=== PATIENT | male | born 1965 | race Caucasian/White ===

== ENCOUNTER 2019-04-14 11:10 | Emergency (ER) | payer MEDICAID ==
[~2019-04-14] VITALS: Ht 175.3 cm; Wt 79.5 kg
[2019-04-14 11:16] VITALS: BP 111/56
[2019-04-14] MEDS ORDERED: diph,pertuss (acell), tet (DTaP-PEDs)/PF 0.5ml syringe IMVAC ONE (11:50)
[2019-04-14] MEDS ORDERED: TETanus/Pertussis (Acell)/Diphther VAC/PF (Tdap-Adult) 0.5ml syringe IMVAC ONE (11:55)
[2019-04-14] MEDS ORDERED: acetaminophen 325mg tablet PO ONE (12:30)
[2019-04-14] MEDS ORDERED: ibuprofen tablet 400 MG TABLET PO ONE (12:30)
[2019-04-14] MEDS ORDERED: CEPH250T PO (12:41)
== END 2019-04-14 13:32 | disposition home or self-care (01) ==
LOC: ER 11:10
DX: S61.531A Puncture wound without foreign body of right wrist, initial encounter (principal); L03.113 Cellulitis of right upper limb; F17.200 Nicotine dependence, unspecified, uncomplicated; Z88.2 Allergy status to sulfonamides; Z79.2 Long term (current) use of antibiotics; W45.0XXA Nail entering through skin, initial encounter; Y93.89 Activity, other specified; Y92.89 Other specified places as the place of occurrence of the external cause; Y99.8 Other external cause status
CPT/HCPCS: 73100; 90471; 99284

== ENCOUNTER 2019-09-17 03:58 | Emergency (ER) | payer MEDICAID ==
[~2019-09-17] VITALS: Ht 177.8 cm; Wt 72.0 kg
[2019-09-17 04:07] VITALS: BP 145/90
== END 2019-09-17 04:24 ==
LOC: ER 03:58
DX: I10 Essential (primary) hypertension (principal); Z88.2 Allergy status to sulfonamides
CPT/HCPCS: 99283

== ENCOUNTER 2020-05-23 05:39 | Emergency (ER) | payer MEDICAID ==
[~2020-05-23] VITALS: Ht 175.3 cm; Wt 72.7 kg
[2020-05-23 05:44] VITALS: BP 181/117
--- NOTE | 2020-05-23 06:16 | NUR ---
LACERATION SET UP AT BEDSIDE / UROJET AND NS
[2020-05-23] MEDS ORDERED: CEPH-572 PO (06:37)
[2020-05-23] MEDS ORDERED: cephalexin 250mg capsule PO ONE (06:40)
== END 2020-05-23 07:06 | disposition home or self-care (01) ==
LOC: ER 05:39
DX: S41.111A Laceration without foreign body of right upper arm, initial encounter (principal); L03.116 Cellulitis of left lower limb; Z88.2 Allergy status to sulfonamides; Z79.899 Other long term (current) drug therapy; W26.8XXA Contact with other sharp object(s), not elsewhere classified, initial encounter; Y93.89 Activity, other specified; Y92.89 Other specified places as the place of occurrence of the external cause; Y99.8 Other external cause status
CPT/HCPCS: 99283

== ENCOUNTER 2021-02-01 17:31 | Emergency (ER) | payer MEDICAID ==
[~2021-02-01] VITALS: Ht 180.3 cm; Wt 78.0 kg
[2021-02-01 17:41] VITALS: BP 182/113
--- NOTE | 2021-02-01 17:52 | NUR ---
[facility] NOTIFIED. CASE #[id number]
== END 2021-02-01 20:38 | disposition left against medical advice (07) ==
LOC: ER 17:31
DX: R51.9 Headache, unspecified (principal); Z53.21 Procedure and treatment not carried out due to patient leaving prior to being seen by health care provider

== ENCOUNTER 2021-07-09 05:16 | Emergency (ER) | payer MEDICAID ==
[~2021-07-09] VITALS: Ht 175.3 cm; Wt 72.7 kg
[2021-07-09 05:30] VITALS: BP 196/132
[2021-07-09] MEDS ORDERED: ondansetron/PF 4mg/2ml inj IV ONE (06:10)
[2021-07-09] MEDS ORDERED: ketorolac trometh. 30mg/ml inj. IV ONE (06:10)
[2021-07-09] MEDS ORDERED: normal saline 1000ML IV soln IVB ONE (06:10)
[2021-07-09] MEDS ORDERED: ketorolac tromethamine 15mg/ml inj. IV ONE (06:15)
[2021-07-09] MEDS ORDERED: acetaminophen 325mg tablet PO ONE (06:20)
[2021-07-09] MEDS ORDERED: proCHLORperazine 10 MG/2 ml inj IV ONE (06:20)
[2021-07-09 09:29] LABS: BASOPHILS % (AUTO) 0.1 % (0-1); EOSINOPHILS % (AUTO) 0.1 % (0-6); HEMATOCRIT 46.3 % (42.0-52.0); HEMOGLOBIN 15.9 g/dl (14.0-17.9); LYMPHOCYTES # (AUTO) 0.8 X10'3 (1.1-4.8); LYMPHOCYTES % (AUTO) 9.2 % (21-51); MEAN CORPUSCULAR HEMOGLOBIN 28.6 PG (27.0-31.0); MEAN CORPUSCULAR HGB CONC 34.3 g/dL (33.0-36.5); MEAN CORPUSCULAR VOLUME 83.4 FL (78-98); MEAN PLATELET VOLUME 8.1 FL (7.4-10.4); MONOCYTES # (AUTO) 0.8 X10'3 (0-0.9); MONOCYTES % (AUTO) 8.7 % (2-12); NEUTROPHILS # (AUTO) 7.5 X10'3 (1.8-7.7); NEUTROPHILS % (AUTO) 81.9 % (42-75); PLATELET COUNT 175 X10'3 (140-440); RED BLOOD COUNT 5.55 X10'6 (4.70-6.10); RED CELL DISTRIBUTION WIDTH 14.7 % (11.5-14.5); WHITE BLOOD COUNT 9.2 X10'3 (4.5-11.0)
[2021-07-09 09:43] LABS: ALANINE AMINOTRANSFERASE 36 U/L (12-78); ALBUMIN 3.4 G/DL (3.4-5.0); ALBUMIN/GLOBULIN RATIO 0.7 (1.1-1.5); ALKALINE PHOSPHATASE 131 IU/L (46-116); ANION GAP 8 (8-16); ASPARTATE AMINO TRANSFERASE 19 U/L (10-37); BILIRUBIN,TOTAL 0.9 MG/DL (0.1-1.0); BLOOD UREA NITROGEN 12 MG/DL (7-18); BUN/CREATININE RATIO 11.5 (5.4-32.0); CALCIUM 8.7 MG/DL (8.5-10.1); CHLORIDE 103 MMOL/L (99-107); CREATININE 1.04 MG/DL (0.60-1.10); GLUCOSE 110 MG/DL (70-104); POTASSIUM 3.4 MMOL/L (3.5-5.1); SODIUM 140 MMOL/L (135-145); TOTAL CARBON DIOXIDE 28.6 MMOL/L (24-32); TOTAL PROTEIN 8.2 G/DL (6.4-8.2); eGFR 74 ML/MIN
[2021-07-09 09:47] LABS: LIPASE 122 U/L (73-393); TROPONIN I < 0.04 NG/ML (0.0-0.05)
[2021-07-09] MEDS ORDERED: ONDA4TAB6 PO (10:14)
[2021-07-09] MEDS ORDERED: metoclopramide 5 mg/ml inj IV ONE (10:15)
== END 2021-07-09 11:36 | disposition home or self-care (01) ==
LOC: ER 05:17
DX: R11.2 Nausea with vomiting, unspecified (principal); Z20.822 Contact with and (suspected) exposure to COVID-19; R51.9 Headache, unspecified; Z88.2 Allergy status to sulfonamides; Z79.899 Other long term (current) drug therapy; F17.200 Nicotine dependence, unspecified, uncomplicated
CPT/HCPCS: 36415; 71045; 80053; 83690; 84145; 84484; 85025; 87635; 96361; 96374; 96375; 99284; C9803; J0780; J1885; J2405; J2765; J7030

== ENCOUNTER 2021-11-06 04:05 | Emergency (ER) | payer MEDICAID ==
[~2021-11-06] VITALS: Ht 175.3 cm; Wt 72.7 kg
[~2021-11-06 04:05] MED LIST: ONDA4TAB6 PO
[2021-11-06] MEDS ORDERED: HYDR12.55 PO (04:58)
[2021-11-06] MEDS ORDERED: LISI10TA27 PO (04:58)
[2021-11-06] MEDS ORDERED: HYDROchlorothiazide 25mg tablet PO ONE (05:00)
[2021-11-06] MEDS ORDERED: lisinopril 10 MG tablet PO ONE (05:00)
[2021-11-06 05:21] VITALS: BP 185/124
== END 2021-11-06 05:22 | disposition home or self-care (01) ==
LOC: ER 04:06
DX: Z13.89 Encounter for screening for other disorder (principal); I10 Essential (primary) hypertension; Z88.2 Allergy status to sulfonamides; Z79.899 Other long term (current) drug therapy
CPT/HCPCS: 99283

== ENCOUNTER 2022-08-20 16:10 | Emergency (ER) | payer MEDICAID ==
[~2022-08-20] VITALS: Ht 175.3 cm; Wt 75.0 kg
[~2022-08-20 16:10] MED LIST changes: +HYDR12.55 PO; +LISI10TA27 PO
[2022-08-20 23:10] LABS: UA COLLECTION TYPE CLN CATCH MIDSTREAM
[2022-08-20 23:13] LABS: COLOR,URINE ORANGE (Yellow)
[2022-08-20 23:19] LABS: CLARITY,URINE Slightly Cloudy (Clear); MUCUS STRANDS FEW /LPF (Neg); SQUAMOUS EPITHELIAL CELL,UR FEW /LPF (FEW)
[2022-08-20 23:20] LABS: BACTERIA,URINE 2+ /HPF (Neg); CAL OXALATE CRYSTALS 4+ /HPF (NEGATIVE); URINE AMPHETAMINE SCREEN POSITIVE (Neg); URINE BARBITUATE SCREEN NEGATIVE (Neg); URINE BENZODIAZEPINES SCREEN NEGATIVE (Neg); URINE CANNABINOID SCREEN NEGATIVE (Neg); URINE COCAINE SCREEN NEGATIVE (Neg); URINE METHADONE SCREEN NEGATIVE (Neg); URINE OPIATE SCREEN NEGATIVE (Neg); URINE PHENCYCLIDINE SCREEN NEGATIVE (Neg); WBC,URINE TNTC /HPF (0-4)
[2022-08-20 23:22] LABS: RBC,URINE TNTC /HPF (0-2); WBC CLUMPS,URINE FEW /HPF (NEGATIVE)
[2022-08-20] MEDS ORDERED: CEPH-585 PO (23:55)
[2022-08-21 00:40] VITALS: BP 146/99
--- NOTE | 2022-08-22 11:33 | NUR ---
PT'S FRIEND CALLED REGARDING THE PT'S VISIT ON 08/20/22. PT GAVE VERBAL PHONE PERMISSION TO SPEAK WITH HIS FEMALE FRIEND REGARDING HIS HEALTH ISSUES. PT WAS SEEN FOR A UTI ON 08/20 AND GIVEN AN RX FOR KEFLEX. PT DID NOT START TAKING THE MEDICATION UNTIL YESTERDAY AFTERNOON 1530. FRIEND STATES THAT PT FEELS LIKE HIS INFECTION IS "DOWN TO HIS BONES" AND WAS WONDERING IF THAT WAS NORMAL. FRIEND WAS INFORMED THAT IT HAS BEEN LESS THAN 24HR SINCE HE STARTED TAKING THE ABX AND THAT IT MAY TAKE A FEW HRS BEFORE HE STARTS TO FEEL BETTER. HOWEVER, FRIEND WAS ADVISED THAT THE PT MAY RETURN TO THE ER FOR FURTHER EVALUATION IF HE CONTINUES TO HAVE SYMPTOMS THAT ARE NOT IMPROVING OR WORSENING.
== END 2022-08-21 03:27 | disposition home or self-care (01) ==
LOC: ER 16:11
DX: N39.0 Urinary tract infection, site not specified (principal); F15.10 Other stimulant abuse, uncomplicated; R10.84 Generalized abdominal pain; R30.0 Dysuria; I10 Essential (primary) hypertension; F19.90 Other psychoactive substance use, unspecified, uncomplicated; Z88.2 Allergy status to sulfonamides; Z79.2 Long term (current) use of antibiotics; Z79.899 Other long term (current) drug therapy
CPT/HCPCS: 80305; 81001; 99284

== ENCOUNTER 2022-09-04 14:52 | Emergency (ER) | payer MEDICAID ==
[~2022-09-04] VITALS: Ht 175.3 cm; Wt 72.7 kg
[~2022-09-04 14:52] MED LIST changes: +CEPH-585 PO
[2022-09-04 15:07] VITALS: BP 180/100
[2022-09-04 16:57] LABS: BASOPHILS % (AUTO) 0.3 % (0-1); EOSINOPHILS # (AUTO) 0.2 X10'3 (0-0.9); EOSINOPHILS % (AUTO) 2.4 % (0-6); HEMATOCRIT 40.5 % (42.0-52.0); HEMOGLOBIN 13.7 g/dl (14.0-17.9); LYMPHOCYTES % (AUTO) 10.3 % (21-51); MEAN CORPUSCULAR HEMOGLOBIN 28.5 PG (27.0-31.0); MEAN CORPUSCULAR HGB CONC 33.8 g/dL (33.0-36.5); MEAN CORPUSCULAR VOLUME 84.3 FL (78-98); MEAN PLATELET VOLUME 7.9 FL (7.4-10.4); MONOCYTES # (AUTO) 0.9 X10'3 (0-0.9); NEUTROPHILS # (AUTO) 7.8 X10'3 (1.8-7.7); PLATELET COUNT 249 X10'3 (140-440); RED BLOOD COUNT 4.81 X10'6 (4.70-6.10)
--- NOTE | 2022-09-04 16:57 | NUR ---
AT BEDSIDE WITH ER PROVIDER ABIGAIL FOR RECTAL EXAM.
[2022-09-04 17:04] LABS: ALANINE AMINOTRANSFERASE 65 U/L (12-78); ALBUMIN 2.9 G/DL (3.4-5.0); ALBUMIN/GLOBULIN RATIO 0.7 (1.1-1.5); ALKALINE PHOSPHATASE 92 IU/L (46-116); ANION GAP 5 (8-16); ASPARTATE AMINO TRANSFERASE 29 U/L (10-37); BILIRUBIN,TOTAL 0.4 MG/DL (0.1-1.0); BLOOD UREA NITROGEN 15 MG/DL (7-18); BUN/CREATININE RATIO 14.7 (5.4-32.0); CALCIUM 9.4 MG/DL (8.5-10.1); CHLORIDE 106 MMOL/L (99-107); CREATININE 1.02 MG/DL (0.60-1.10); GLUCOSE 112 MG/DL (70-104); POTASSIUM 3.9 MMOL/L (3.5-5.1); SODIUM 144 MMOL/L (135-145); TOTAL CARBON DIOXIDE 33.4 MMOL/L (24-32); TOTAL PROTEIN 7.2 G/DL (6.4-8.2); eGFR 75 ML/MIN
[2022-09-04] MEDS ORDERED: orphenadrine citrate 60mg/2ml inj. IM ONE (18:50)
[2022-09-04] MEDS ORDERED: ketorolac tromethamine 15mg/ml inj. IM ONE (18:50)
[2022-09-04] MEDS ORDERED: CYCL-1 PO (18:56)
[2022-09-04] MEDS ORDERED: IBUP-1984 PO (18:56)
[2022-09-04] MEDS ORDERED: dexamethasone sod phosphate 10mg/ml inj IM STA (18:56)
[2022-09-04] MEDS ORDERED: PRED20TA PO (18:56)
[2022-09-04] MEDS ORDERED: BENZ-38 PO (19:25)
== END 2022-09-05 07:46 | disposition home or self-care (01) ==
LOC: ER 14:53
DX: S39.012A Strain of muscle, fascia and tendon of lower back, initial encounter (principal); M54.31 Sciatica, right side; I10 Essential (primary) hypertension; Z88.2 Allergy status to sulfonamides; Z79.899 Other long term (current) drug therapy; X58.XXXA Exposure to other specified factors, initial encounter; Y93.89 Activity, other specified; Y92.89 Other specified places as the place of occurrence of the external cause; Y99.8 Other external cause status
CPT/HCPCS: 72148; 80053; 85025; 96372; 99284; J1100; J2360

== ENCOUNTER 2022-10-14 03:20 | Emergency (ER) | payer OTHER, MEDICAID ==
[~2022-10-14] VITALS: Ht 175.3 cm; Wt 74.1 kg
[~2022-10-14 03:20] MED LIST changes: +CYCL-1 PO
[2022-10-14] MEDS ORDERED: acetaminophen 325mg tablet PO ONE (03:35)
[2022-10-14] MEDS ORDERED: CefTRIAXone/D5W-Rocephin 1gm 50 ML IV ONE (03:35)
[2022-10-14] MEDS ORDERED: aspirin 81mg tab.chew PO ONE (03:35)
[2022-10-14 04:23] LABS: BASOPHILS # (AUTO) 0.1 X10'3 (0-0.2); BASOPHILS % (AUTO) 0.7 % (0-1); EOSINOPHILS # (AUTO) 0.1 X10'3 (0-0.9); EOSINOPHILS % (AUTO) 0.6 % (0-6); HEMATOCRIT 43.2 % (42.0-52.0); HEMOGLOBIN 14.6 g/dl (14.0-17.9); LYMPHOCYTES # (AUTO) 1.6 X10'3 (1.1-4.8); LYMPHOCYTES % (AUTO) 16.4 % (21-51); MEAN CORPUSCULAR HEMOGLOBIN 28.2 PG (27.0-31.0); MEAN CORPUSCULAR HGB CONC 33.8 g/dL (33.0-36.5); MEAN CORPUSCULAR VOLUME 83.6 FL (78-98); MEAN PLATELET VOLUME 7.9 FL (7.4-10.4); MONOCYTES # (AUTO) 0.8 X10'3 (0-0.9); MONOCYTES % (AUTO) 8.5 % (2-12); NEUTROPHILS # (AUTO) 7.4 X10'3 (1.8-7.7); NEUTROPHILS % (AUTO) 73.8 % (42-75); PLATELET COUNT 160 X10'3 (140-440); RED BLOOD COUNT 5.17 X10'6 (4.70-6.10); RED CELL DISTRIBUTION WIDTH 13.9 % (11.5-14.5)
[2022-10-14 04:35] LABS: ALANINE AMINOTRANSFERASE 34 U/L (12-78); ALBUMIN 3.8 G/DL (3.4-5.0); ALKALINE PHOSPHATASE 101 IU/L (46-116); ANION GAP 7 (8-16); ASPARTATE AMINO TRANSFERASE 22 U/L (10-37); BILIRUBIN,TOTAL 0.7 MG/DL (0.1-1.0); BLOOD UREA NITROGEN 22 MG/DL (7-18); BUN/CREATININE RATIO 22.2 (5.4-32.0); CALCIUM 9.3 MG/DL (8.5-10.1); CHLORIDE 104 MMOL/L (99-107); CREATININE 0.99 MG/DL (0.60-1.10); GLUCOSE 91 MG/DL (70-104); POTASSIUM 3.4 MMOL/L (3.5-5.1); SODIUM 138 MMOL/L (135-145); TOTAL CARBON DIOXIDE 27.2 MMOL/L (24-32); TOTAL PROTEIN 7.7 G/DL (6.4-8.2); eGFR 78 ML/MIN
--- NOTE | 2022-10-14 04:43 | NUR ---
Patient was administered 81 mg Aspirin, per patient request rather than the MD ordered 324 mg Aspirin. MD aware.
--- NOTE | 2022-10-14 04:45 | NUR ---
Patient stated that he refused his blood pressure medication in the half-way.
[2022-10-14] MEDS ORDERED: DOXYCYCLINE 100MG CAPSULE PO STA (05:23)
[2022-10-14] MEDS ORDERED: lisinopril 10 MG tablet PO ONE (05:25)
[2022-10-14] MEDS ORDERED: CEPH-585 PO (05:26)
[2022-10-14] MEDS ORDERED: DOXY100C76 PO (05:26)
[2022-10-14 07:21] VITALS: BP 129/86
== END 2022-10-14 07:44 ==
LOC: ER 03:21
DX: N61.0 Mastitis without abscess (principal); R07.89 Other chest pain; I10 Essential (primary) hypertension; Z91.14 Patient's other noncompliance with medication regimen; Z88.2 Allergy status to sulfonamides
CPT/HCPCS: 36415; 71045; 80053; 83880; 84484; 85025; 93005; 96374; 99285; J0696